=== PATIENT | female | born 1985 | race Hispanic/Latino ===

== ENCOUNTER → 2024-10-01 12:49 | Outpatient (REF) | payer OTHER, SELFPAY | LOC: RAD 12:49 | PROVIDERS: ATTENDING PHYSICIAN Student in an Organized Health Care Education/Training Program; FAMILY PHYSICIAN Nurse Practitioner Family | DX: N94.89 Other specified conditions associated with female genital organs and menstrual cycle (principal) | CPT/HCPCS: 74174; Q9967 ==

== ENCOUNTER → 2025-01-03 14:16 | Outpatient (REF) | payer OTHER, SELFPAY | LOC: DHVS 14:16 | PROVIDERS: ATTENDING PHYSICIAN Student in an Organized Health Care Education/Training Program; FAMILY PHYSICIAN Nurse Practitioner Family | DX: I83.813 Varicose veins of bilateral lower extremities with pain (principal) | CPT/HCPCS: 93970 ==

== ENCOUNTER → 2025-03-07 13:29 | Outpatient (REF) | payer SELFPAY | LOC: RAD 13:29 | PROVIDERS: FAMILY PHYSICIAN Nurse Practitioner Family | DX: Z01.818 Encounter for other preprocedural examination (principal) | CPT/HCPCS: 74170; Q9967 ==